=== PATIENT | male | born 1950 | race Caucasian/White ===

== ENCOUNTER → 2019-12-26 | Day surgery (SDC) | payer MEDICARE, BC ==
[~2019-12-26] MED LIST: Lactated Ringers 1,000 ML IV SCH
[2019-12-26 10:08] VITALS: BP 120/71; PULSE 60
--- NOTE | 2019-12-26 16:33 | OR ---
DATE OF OPERATION: 12/26/2019 PREOPERATIVE DIAGNOSIS: HISTORY OF POLYPS. POSTOPERATIVE DIAGNOSIS: HISTORY OF POLYPS. SURGEON: Christiano Lim MD PROCEDURE: FULL-LENGTH COLONOSCOPY. ANESTHESIA: MAC. COMPLICATIONS: None. SPECIMEN: None. FINDINGS: 1. Full-length colonoscopy. 2. Mild sigmoid diverticulosis. 3. Prominent internal hemorrhoids. RECOMMENDATIONS: Followup colonoscopy in 10 years. INDICATIONS: The patient had a tubulovillous adenoma removed 5 years ago. He is in for a followup scope. DESCRIPTION OF PROCEDURE: The patient was prepped and draped, placed in the left lateral decubitus position. A lubricated Olympus colonoscope was inserted and with relative ease advanced to the cecum. Direct visualization of the ileocecal valve and appendiceal orifice was accomplished. The bowel prep was adequate. Upon withdrawal, throughout the entire colon, I could find no signs of any polyps, masses, ulceration, or bleeding sites. The patient has prominent venous dilatation throughout most of the colon, lot of small dilated veins throughout. No gross polyps could be found. He had a few scattered diverticula in the sigmoid area, very minimal in severity. Rectal vault was unremarkable. Retroflexion showed prominent internal hemorrhoid disease. Air was then suctioned. Scope was then removed without complication. GÓMEZ/ZAID /[id number]
== END ==
LOC: CC.SDS 07:42
PROVIDERS: ATTEND Family Medicine
DX: K57.30 Diverticulosis of large intestine without perforation or abscess without bleeding (principal); K64.8 Other hemorrhoids; E78.5 Hyperlipidemia, unspecified; N40.0 Benign prostatic hyperplasia without lower urinary tract symptoms; Z87.891 Personal history of nicotine dependence; Z98.890 Other specified postprocedural states; Z79.82 Long term (current) use of aspirin; Z79.899 Other long term (current) drug therapy; Z86.010 Personal history of colon polyps
CPT/HCPCS: 00811; 93005; G0105; G0121; J7120